=== PATIENT | male | born 1955 | race Caucasian/White ===

== ENCOUNTER 2018-11-10 23:15 | Inpatient (IN) | payer OTHER ==
[~2018-11-10] VITALS: Ht 172.7 cm; Wt 77.1 kg
[2018-11-10 23:48] VITALS: BP_SYST 127
[2018-11-11] MEDS ORDERED: NACL 0.9% 1,000 ML IV ONE
[2018-11-11] MEDS ORDERED: KETOROLAC TROMETHAMINE 30 MG VIAL IVP ONE
[2018-11-11] MEDS ORDERED: ONDANSETRON HCL 4 MG/2 ML VIAL IVP ONE
[2018-11-11] MEDS ORDERED: RIVA10TA PO (00:01)
[2018-11-11 01:26] LABS: CALCIUM 9.3 mg/dL (8.4-11.0); CREATININE 1.51 mg/dL (0.55-1.30); POTASSIUM 3.3 mmol/L (3.5-5.1)
[2018-11-11 01:32] LABS: HEMATOCRIT 44.9 % (36-54); HEMOGLOBIN 14.7 g/dL (14.0-18.0); INR 0.9 (0.80-1.20); MEAN CORPUSCULAR HEMOGLOBIN 30 pg (27-31); MEAN CORPUSCULAR HGB CONC 33 % (32-36); MEAN CORPUSCULAR VOLUME 93 fL (79.0-98.0); PLATELET COUNT (AUTO) 285 K/uL (130-430); PROTHROMBIN TIME 9.3 SECS (9.5-12.5); RED BLOOD CELL COUNT(AUTO) 4.84 MIL/uL (4.2-6.2); RED CELL DISTRIBUTION WIDTH 15.1 % (9.0-15.0); WHITE BLOOD COUNT (AUTO) 18.1 K/uL (4.8-10.8)
[2018-11-11 01:33] LABS: LYMPHOCYTES % (AUTO) 4.1 % (20.5-51.5); NEUTROPHILS % (AUTO) 91.7 % (40.0-70.0)
[2018-11-11 01:34] LABS: BASOPHILS # (AUTO) 0.1 K/uL (0.0-0.2); BASOPHILS % (AUTO) 0.4 % (0.0-2.0); EOSINOPHILS # (AUTO) 0.1 K/uL (0.0-0.4); EOSINOPHILS % (AUTO) 0.4 % (0.0-4.0); LYMPHOCYTES # (AUTO) 0.7 K/uL (1.0-5.5); MONOCYTES # (AUTO) 0.6 K/uL (0.0-1.0); MONOCYTES % (AUTO) 3.4 % (1.7-9.3); NEUTROPHILS # (AUTO) 16.6 K/uL (1.8-7.7)
[2018-11-11 01:41] LABS: ALBUMIN 3.4 g/dL (3.4-4.8); TOTAL BILIRUBIN 0.3 mg/dL (0.0-1.0)
[2018-11-11] MEDS ORDERED: RIVA15TA PO (01:48)
[2018-11-11] MEDS ORDERED: FERR-69 PO (01:49)
[2018-11-11] MEDS ORDERED: metroNIDAZOLE 500 mg/NS 100 ML IV ONE (02:15)
[2018-11-11] MEDS ORDERED: MORPHINE 4 MG/ML INJ. SYRINGE IVP PRN (02:15)
[2018-11-11] MEDS ORDERED: PIPERACILLIN/TAZO 3.375 GM in NS 50 ML IV ONE (02:15)
[2018-11-11] MEDS ORDERED: PIPERACILLIN/TAZOBACTAM 3.375 GM/VIAL (ZOSYN) IV ONE (02:22)
[2018-11-11 03:12] VITALS: BP_SYST 112
[2018-11-11] MEDS: D5NS 1,000 ML IV SCH (03:57)
[2018-11-11] MEDS: ONDANSETRON HCL 4 MG/2 ML VIAL IVP PRN (06:18)
[2018-11-11 07:08] LABS: BILIRUBIN,URINE NEGATIVE (NEGATIVE); BLOOD, URINE 2+ (NEGATIVE); COLOR,URINE YELLOW (YELLOW); GLUCOSE,URINE NEGATIVE (NEGATIVE); KETONES,URINE NEGATIVE (NEGATIVE); LEUKOCYTE ESTERASE ,URINE 1+ (NEGATIVE); NITRITE, URINE POSITIVE (NEGATIVE); PROTEIN URINE 2+ (NEGATIVE); UROBILINOGEN,URINE 0.2 (0.2-1.0)
[2018-11-11 07:22] LABS: CLARITY/URINE HAZY (CLEAR)
[2018-11-11 07:24] LABS: BACTERIA,URINE MODERATE /HPF (None Seen); MUCUS,URINE 1+ /LPF (None Seen); WBC,URINE 50-80 /HPF (0-3)
[2018-11-11 09:51] LABS: CREATININE 1.6 mg/dL (0.55-1.30); POTASSIUM 4.4 mmol/L (3.5-5.1)
[2018-11-11 09:57] LABS: TOTAL BILIRUBIN 0.4 mg/dL (0.0-1.0)
[2018-11-11 10:05] LABS: HEMATOCRIT 41.6 % (36-54); HEMOGLOBIN 13.5 g/dL (14.0-18.0); MEAN CORPUSCULAR HEMOGLOBIN 30 pg (27-31); MEAN CORPUSCULAR HGB CONC 32 % (32-36); MEAN CORPUSCULAR VOLUME 93 fL (79.0-98.0); PLATELET COUNT (AUTO) 259 K/uL (130-430); RED BLOOD CELL COUNT(AUTO) 4.49 MIL/uL (4.2-6.2); RED CELL DISTRIBUTION WIDTH 14.4 % (9.0-15.0)
[2018-11-11 10:19] LABS: CALCIUM 8.7 mg/dL (8.4-11.0)
[2018-11-11] MEDS ORDERED: KCL 40 mEq in 100 mL (PREMIX) 100 ML IV ONE (11:00)
[2018-11-11] MEDS: cefTRIAXone 1 GM IVPB PREMIX 50 ML IV SCH (11:29)
[2018-11-11] MEDS: metroNIDAZOLE 500 mg/NS 100 ML IV SCH (12:23)
[2018-11-11 12:33] VITALS: BP_SYST 132
[2018-11-11 12:41] LABS: BAND % (MANUAL) 3 % (0-6); BASOPHILS % (MANUAL) 0 % (0-2); EOSINOPHILS % (MANUAL) 0 % (0-7); LYMPHOCYTES % (MANUAL) 5 % (20-46); MONOCYTES % (MANUAL) 4 % (0-11)
[2018-11-11] MEDS ORDERED: LR 1,000 ML IV SCH (14:07)
[2018-11-11] MEDS ORDERED: HYDROmorphone 2 MG/ML VIAL IVP PRN (14:15)
[2018-11-11] MEDS ORDERED: HYDROmorphone 1 MG INJ. 1 MG/ML AMPUL IVP PRN ×2 (14:15)
[2018-11-11] MEDS ORDERED: METOCLOPRAMIDE HCL 10 MG/2 ML VIAL IVP PRN (14:15)
[2018-11-11] MEDS ORDERED: POLYMYXIN 500,000/BACIT.10,000 UNITS in NS IRR 1 L IR ONE (14:17)
[2018-11-11 18:05] VITALS: BP_SYST 152
[2018-11-11 20:00] VITALS: BP_SYST 125
[2018-11-11] MEDS: MORPHINE 4 MG/ML INJ. SYRINGE IVP PRN (22:00)
[2018-11-12 00:10] VITALS: BP_SYST 144
[2018-11-12] MEDS ORDERED: HYDROmorphone 1 MG INJ. 1 MG/ML AMPUL IVP SCH (00:30)
[2018-11-12] MEDS: D5NS 1,000 ML IV SCH ×4 (00:36→21:35)
[2018-11-12] MEDS: MORPHINE 4 MG/ML INJ. SYRINGE IVP PRN ×2 (05:00→08:23)
[2018-11-12] MEDS: metroNIDAZOLE 500 mg/NS 100 ML IV SCH ×3 (06:35→21:35)
[2018-11-12 07:30] VITALS: BP_SYST 150
[2018-11-12] MEDS: cefTRIAXone 1 GM IVPB PREMIX 50 ML IV SCH (08:20)
[2018-11-12] MEDS: ONDANSETRON HCL 4 MG/2 ML VIAL IVP PRN (11:45)
[2018-11-12] MEDS ORDERED: HYDROmorphone 1 MG INJ. 1 MG/ML AMPUL IVP ONE (12:15)
[2018-11-12 12:30] VITALS: BP_SYST 149
[2018-11-12 17:10] VITALS: BP_SYST 134
[2018-11-12] MEDS: fentaNYL CITRATE/PF 100 MCG/2 ML AMP IVP PRN ×2 (18:02→23:25)
[2018-11-12 20:34] VITALS: BP_SYST 136
[2018-11-12 23:54] VITALS: BP_SYST 139
[2018-11-13] MEDS: fentaNYL CITRATE/PF 100 MCG/2 ML AMP IVP PRN ×5 (06:13→21:30)
[2018-11-13] MEDS: metroNIDAZOLE 500 mg/NS 100 ML IV SCH ×3 (06:13→22:10)
[2018-11-13 08:58] VITALS: BP_SYST 133
[2018-11-13] MEDS: cefTRIAXone 1 GM IVPB PREMIX 50 ML IV SCH (09:27)
[2018-11-13] MEDS: ONDANSETRON HCL 4 MG/2 ML VIAL IVP PRN (10:45)
[2018-11-13 11:58] LABS: BASOPHILS # (AUTO) 0.4 K/uL (0.0-0.2); BASOPHILS % (AUTO) 2.5 % (0.0-2.0); EOSINOPHILS # (AUTO) 0.4 K/uL (0.0-0.4); EOSINOPHILS % (AUTO) 2.3 % (0.0-4.0); HEMATOCRIT 34.2 % (36-54); HEMOGLOBIN 11.4 g/dL (14.0-18.0); LYMPHOCYTES # (AUTO) 0.7 K/uL (1.0-5.5); LYMPHOCYTES % (AUTO) 4.4 % (20.5-51.5); MEAN CORPUSCULAR HEMOGLOBIN 32 pg (27-31); MEAN CORPUSCULAR HGB CONC 33 % (32-36); MEAN CORPUSCULAR VOLUME 94 fL (79.0-98.0); NEUTROPHILS # (AUTO) 13.8 K/uL (1.8-7.7); NEUTROPHILS % (AUTO) 84.8 % (40.0-70.0); PLATELET COUNT (AUTO) 179 K/uL (130-430); RED BLOOD CELL COUNT(AUTO) 3.63 MIL/uL (4.2-6.2); RED CELL DISTRIBUTION WIDTH 14.6 % (9.0-15.0); WHITE BLOOD COUNT (AUTO) 16.3 K/uL (4.8-10.8)
[2018-11-13 12:00] LABS: CALCIUM 7.3 mg/dL (8.4-11.0); CREATININE 1.36 mg/dL (0.55-1.30); POTASSIUM 3.4 mmol/L (3.5-5.1)
[2018-11-13 12:04] LABS: ALBUMIN 2.1 g/dL (3.4-4.8); TOTAL BILIRUBIN 0.3 mg/dL (0.0-1.0)
[2018-11-13 12:20] VITALS: BP_SYST 138
[2018-11-13] MEDS: D5NS 1,000 ML IV SCH (12:40)
[2018-11-13] MEDS ORDERED: SUGAMMADEX SODIUM 200 MG/2 ML VIAL IV ONE (13:15)
[2018-11-13] MEDS ORDERED: ROCURONIUM BROMIDE 10 MG/ML (ZEMURON) IV ONE (13:15)
[2018-11-13] MEDS ORDERED: LR 1,000 ML IV.SOLN IV ONE (13:15)
[2018-11-13] MEDS ORDERED: NS 1000 ML IV.SOLN IV ONE (13:15)
[2018-11-13] MEDS ORDERED: PROPOFOL 200MG/ 20ML VIAL (DIPRIVAN) IV ONE (13:15)
[2018-11-13] MEDS ORDERED: MIDAZOLAM HCL 5 MG/5 ML VIAL IVP ONE (13:15)
[2018-11-13] MEDS ORDERED: fentaNYL CITRATE 250 MCG/5 ML AMP IV ONE (13:15)
[2018-11-13] MEDS ORDERED: SEVOFLURANE 15 MIN GAS INH ONE (13:15)
[2018-11-13] MEDS ORDERED: ONDANSETRON HCL 4 MG/2 ML VIAL IVP ONE (13:15)
[2018-11-13] MEDS ORDERED: BUPIVACAINE /PF 0.25% 30 ML VIAL INJ ONE (13:15)
[2018-11-13] MEDS ORDERED: BUPIVACAINE LIPOSOME/PF 266 MG/20 ML VIAL INFIL ONE (13:15)
[2018-11-13] MEDS ORDERED: WATER FOR IRRIGATION,STERILE 1,000 ML IRRIG.SOLN IR ONE (13:15)
[2018-11-13 16:51] VITALS: BP_SYST 143
[2018-11-13 21:22] VITALS: BP_SYST 134
[2018-11-13 23:00] VITALS: BP_SYST 131
[2018-11-14] MEDS: metroNIDAZOLE 500 mg/NS 100 ML IV SCH ×2 (07:11→14:00)
[2018-11-14 08:00] VITALS: BP_SYST 138
[2018-11-14] MEDS: cefTRIAXone 1 GM IVPB PREMIX 50 ML IV SCH (08:25)
[2018-11-14] MEDS ORDERED: PROPOFOL 200MG/ 20ML VIAL (DIPRIVAN) IV ONE (10:30)
[2018-11-14] MEDS ORDERED: MIDAZOLAM HCL 5 MG/5 ML VIAL IVP ONE (10:30)
[2018-11-14] MEDS ORDERED: BUPIVACAINE /PF 0.75% 10 ML VIAL INJ ONE (10:30)
[2018-11-14] MEDS ORDERED: NS 1000 ML IV.SOLN IV ONE (10:30)
[2018-11-14] MEDS ORDERED: IOHEXOL 100 ML IV ONE (10:47)
[2018-11-14] MEDS: D5NS 1,000 ML IV SCH (11:00)
[2018-11-14] MEDS ORDERED: IOHEXOL 300 mgI/mL, 50 mL INFUS..BTL IV ONE (11:02)
[2018-11-14] MEDS ORDERED: ONDANSETRON HCL 4 MG/2 ML VIAL IVP PRN (11:45)
[2018-11-14] MEDS ORDERED: fentaNYL CITRATE/PF 100 MCG/2 ML AMP IVP PRN ×2 (11:45)
[2018-11-14] MEDS ORDERED: fentaNYL CITRATE/PF 100 MCG/2 ML AMP ONE (11:58)
[2018-11-14 12:25] VITALS: BP_SYST 143
[2018-11-14 13:00] VITALS: BP_SYST 130
[2018-11-14 13:56] VITALS: BP_SYST 124
[2018-11-14] MEDS: fentaNYL CITRATE/PF 100 MCG/2 ML AMP IVP PRN (13:56)
[2018-11-14] MEDS: ONDANSETRON HCL 4 MG/2 ML VIAL IVP PRN (14:00)
== END 2018-11-14 15:45 | disposition short-term general hospital (02) | DRG 331 ==
LOC: SED 23:15 → SMU 11-11 02:08
PROVIDERS: ADMIT Internal Medicine Hospice and Palliative Medicine; ATTEND Internal Medicine Hospice and Palliative Medicine
PROC: 0DS80ZZ Reposition Small Intestine, Open Approach (ICD-10-PCS; 2018-11-11)
PROC: 0D9670Z Drainage of Stomach with Drainage Device, Via Natural or Artificial Opening (ICD-10-PCS; 2018-11-11)
PROC: 0WUF0JZ Supplement Abdominal Wall with Synthetic Substitute, Open Approach (ICD-10-PCS; principal; 2018-11-11 13:00)
PROC: 0TJB8ZZ Inspection of Bladder, Via Natural or Artificial Opening Endoscopic (ICD-10-PCS; 2018-11-14)
DX: K43.3 Parastomal hernia with obstruction, without gangrene (principal); K66.0 Peritoneal adhesions (postprocedural) (postinfection); R33.9 Retention of urine, unspecified; I10 Essential (primary) hypertension; Z85.048 Personal history of other malignant neoplasm of rectum, rectosigmoid junction, and anus; Z93.3 Colostomy status; Z86.718 Personal history of other venous thrombosis and embolism; Z92.21 Personal history of antineoplastic chemotherapy; Z90.79 Acquired absence of other genital organ(s)
CPT/HCPCS: 36415; 71045; 76000; 80053; 81000-TC; 83605; 83690-TC; 84484; 85007; 85025; 85027; 85610-TC; 85730-TC; 86886; 86900; 86901; 86920; 87040-TC; 87081; 87086; 87186-TC; 88302; 93005; 97110-GP; 97116-GP; 97530-GP; 99285; C1758; C1769; C9290; C9358; C9399; J0696; J1170; J1885; J2250; J2270; J2405; J2543; J2704; J3010; J3490; J7030; J7042; J7120; Q9967